=== PATIENT | female | born 2000 | race African-American/Black ===

== ENCOUNTER 2023-03-01 11:29 | Emergency (ER) | payer OTHER ==
[2023-03-01] MEDS ORDERED: KETOROLAC 60 MG/2 ML VIAL IM STA (11:59)
[2023-03-01] MEDS ORDERED: DEXAMETHASONE 10 MG/ML VIAL PO STA (11:59)
--- NOTE | 2023-03-01 12:01 | ED Physician Documentation ---
History of Present Illness - Stated complaint Stated Complaint: THROAT SWELLING/PX - Chief complaint Chief Complaint: Heent - History obtained from History obtained from: Patient - History of Present Illness Timing: How many days ago (5) Pain level max: 8 Pain level now: 8 - Additonal information Additional information: 22-year-old female presents to the emergency department for sore throat for the past 4 to 5 days. She states that she was seen at the [employer] [facility] had a negative rapid strep and negative mono testing. She was placed on Motrin but is not improving. Developed fever today. Pain is worse with eating and drinking, Motrin is not helping. She does have an infant but states she does not breast-f eed. She denies any possibility of . She is visiting from out of town and is leaving to drive back to her home tomorrow. Review of Systems Constitutional: reports: Fever Nose: denies: Rhinorrhea / runny nose, Congestion Throat: reports: Sore throat Respiratory: denies: Cough GI: denies: Nausea, Vomiting, Diarrhea Skin: denies: Rash Musculoskeletal: denies: Neck pain, Back pain Neurologic: denies: Headache PD PAST MEDICAL HISTORY - Past Medical History Past Medical History: No - Past Surgical History Past Surgical History: No - Present Medications Home Medications: Ambulatory Orders Medication Instructions Recorded Confirmed HYDROcod/ACETAM 5/325 [[place] 5/325] 1 - 2 ea PO Q6H PRN #14 tablet 03/01/23 clindamycin HCL [Cleocin HCl] 300 mg PO Q6H #40 cap 03/01/23 predniSONE [Deltasone] 10 mg PO [id number] #42 tab 03/01/23 - Allergies Allergies/Adverse Reactions: Allergies Allergy/AdvReac Type Severity Reaction Status Date / Time No Known Drug Allergies Allergy Verified 03/01/23 11:48 - Social History Does the pt smoke?: No Smoking Status: Never smoker - Immunizations Immunizations are current?: Yes PD ED PE NORMAL - Vitals Vital signs reviewed: Yes - General General: Alert and oriented X 3, No acute distress - HEENT HEENT: PERRL, Moist mucous membranes, Other (Left-sided peritonsillar swelling. Uvula still midline. Normal phonation. No trismus. No exudates.) - Neck Neck: Supple, no meningeal sign - Cardiac Cardiac: RRR, Strong equal pulses - Respiratory Respiratory: No respiratory distress, Clear bilaterally - Abdomen Abdomen: Soft, Non tender, Non distended - Derm Derm: Warm and dry, No rash - Neuro Neuro: Alert and oriented X 3 - Psych Psych: Normal mood, Normal affect Results - Vitals Vitals: Vital Signs - 24 hr 03/01/23 11:35 Temperature 38.7 C H Heart Rate 120 H Respiratory 18 Rate Blood Pressure 117/78 O2 Saturation 98 Oxygen O2 Source Room air PD Medical Decision Making - ED course Complexity details: considered differential, d/w patient ED course: 22-year-old female with possible early peritonsillar abscess versus peritonsillar cellulitis. Uvula is still midline. Normal phonation. No trismus. Given dexamethasone and Toradol here. Will place on clindamycin, steroids and pain medication for home. Patient is well-appearing, nontoxic. Tolerating p.o. well here. Well-hydrated. Patient counseled regarding signs and symptoms for which I believe and urgent re-evaluation would be necessary. Patient with good understanding of and agreement to plan and is comfortable going home at this time This document was made in part using voice recognition software. While efforts are made to proofread this document, sound alike and grammatical errors may occur. Departure - Departure Disposition: 01 Home, Self Care Clinical Impression: Peritonsillar cellulitis Condition: Good Instructions: ED Peritonsillar Infec Abx No I andD Follow-Up: your,doctor in 3 days for recheck [Other] Prescriptions: clindamycin HCL [Cleocin HCl] 300 mg PO Q6H #40 cap predniSONE [Deltasone] 10 mg PO [id number] #42 tab HYDROcod/ACETAM 5/325 [[place] 5/325] 1 - 2 ea PO Q6H PRN #14 tablet PRN Reason: Pain Comments: Your prescriptions were sent to the [facility] pharmacy. Please follow-up with your doctor for further care. If you are not better in 2 to 3 days, you should see your doctor and have a referral for ear nose and throat to discuss drainage of the peritonsillar abscess. It does not appear large enough to be drained today. Take all antibiotics until gone even if you are feeling better. Cold fluids and things like popsicles will help with the swelling as well. Do not breast-feed while taking the medication. I am prescribing a short course of narcotic pain medication for you. These are potentially dangerous and addictive medications that should be used carefully. These medications may constipate you. Take an jwpz-goj-[id number] stool softener (docusate) twice daily with plenty of water while taking these medications. If you go 24 hours without a bowel movement, take [id number] miralax, per package instructions. Do not drink or drive while taking these medications. If you received narcotic or sedating medications while in the emergency department, do not drive for 24 hours. Store this medication in a safe, secure place and out of reach of children. It is a violation of federal law to give or sell this medication to another person or to use in a manner other than prescribed. The ED will not refill narcotic prescriptions, including prescriptions lost or stolen. To dispose of unwanted medications: 1. [facility] at [address] in [place] has a medication drop box. They accept prescription medications (in pill form) Tuesday through Tuesday 9:00 a.m. to 5:00 p.m. 2. The [facility] [employer] accepts prescription medications (in pill form only) for disposal year round. Call for more information. 3. Contact the [facility] for the next [facility] sponsored prescription drug collection event. , [phone], or [phone]; Forms: PCP List
[2023-03-01 12:51] VITALS: BP 116/72; O2SAT 100
== END 2023-03-01 12:42 | disposition home or self-care (01) ==
LOC: ED 11:29
DX: J36 Peritonsillar abscess (principal)
CPT/HCPCS: 96372; 99283